=== PATIENT | male | born 1985 | race Caucasian/White ===

== ENCOUNTER 2017-05-10 16:23 | Inpatient (IN) | payer OTHER ==
[2017-05-10 17:17] VITALS: BMI 40.8
[2017-05-10] MEDS ORDERED: TEFLARO IV SCH (18:00)
--- NOTE | 2017-05-10 18:13 | DR.H&P ---
H&P - History & Physical for Day of: H&P Date: 05/10/17 - Chief Complaint Chief Complaint: right leg wound - Allergies Allergies/Adverse Reactions: Allergies Allergy/AdvReac Type Severity Reaction Status Date / Time haloperidol [From Haldol] Allergy Verified 05/10/17 17:25 - History of Present Illness History of Present Illness: PT IS 31 WM DIRECT ADMIT FROM DR LEE OFFICE AFTER PRESENTING WITH WOUND TO RIGHT FOOT X 3-4 DAYS.PT STATES HE WAS SEEN IN ED IN [facility] ONE DAY AGO WITH I & D, PT WAS GIVEN PO BACTRIM AND IM ROCEPHIN. PT HAS HAD FEVER DURING THE NIGHT WITH RED STREAK UP RIGHT LEG AND LOWER CALF PAIN WITH SWELLING. PLAN TO ADMIT FOR FURTHER EVALUATION OF WOUND, IV ATBX, PAIN CONTROL, WOUND AND BLOOD CULTURES - Past Medical History Past Medical History: Hypertension - Past Surgical History Surgical History: Appendectomy, Cholecystectomy, Tonsillectomy, Lithotripsy - Family History Family Medical History: Diabetes Mellitus - Social History Does patient currently use any type of tobacco product: No Have you used tobacco products in the last 12 months: No Type of Tobacco Use: None Does any household member use tobacco: No Alcohol Use: None Drug Use: None - Review of Systems Constitutional: Fever Eyes: No Symptoms Reported ENT: No Symptoms Reported Respiratory: No Symptoms Reported Cardiovascular: No Symptoms Reported Gastrointestinal: No Symptoms Reported Genitourinary: No Symptoms Reported Musculoskeletal: Leg Pain, Foot Pain Skin: Wound Neurological: No Symptoms Reported - Physical Exam Vital Signs: Temperature 98.5 F Pulse Rate [Right Brachial] 66 Respiratory Rate 20 Blood Pressure [Right Arm] 119/57 O2 Sat by Pulse Oximetry 96 Oriented: Normal Eyes: Normal Ear: Normal Nose: Normal Throat: Normal Respiratory: RLL Diminished, LLL Diminished Cardiovascular: Normal : Normal Auscultation: Bowel Sounds: Normal Palpation: Normal Tenderness: Normal Skin: Wound (RIGHT ANKLE ) Musculoskeletal: Right, Leg, Foot Psychiatric: Normal Mood Description: Calm Speech Pattern: Clear, Appropriate - Assessment/Plan (1) Cellulitis of right lower extremity Status: Acute Plan: ADMIT, WOUND AND BLOOD CULTURES. IV ATBX, IV HYDRATION, PAIN CONTROL. SURGICAL CONSULT FOR I & S. WOUND CARE. RESUME HOME MEDS (2) Abscess of right foot Status: Acute
[2017-05-10 18:14] LABS: BASOPHILS # (AUTO) 0.1 X10^3/uL (0.0-0.1); BASOPHILS % (AUTO) 0.7 % (0.2-1.0); EOSINOPHILS # (AUTO) 0.2 x10^3/uL (0.0-0.2); EOSINOPHILS % (AUTO) 2.8 % (0.9-2.9); HEMATOCRIT 40.4 % (42.0-54.0); HEMOGLOBIN 14.1 g/dL (13.5-18.0); LYMPHOCYTES # (AUTO) 2.9 X10^3/uL (1.3-2.9); LYMPHOCYTES % (AUTO) 32.8 % (21.0-51.0); MEAN CORPUSCULAR HEMOGLOBIN 28.9 pg (27.0-34.0); MEAN CORPUSCULAR HGB CONC 34.8 g/dL (33.0-35.0); MEAN PLATELET VOLUME 7.6 fL (7.4-11.0); MONOCYTES # (AUTO) 1.5 x10^3/uL (0.3-0.8); MONOCYTES % (AUTO) 16.7 % (0.0-13.0); NEUTROPHILS # (AUTO) 4.1 x10^3/uL (2.2-4.8); PLATELET COUNT 215 X10^3/uL (150.0-450.0); RED BLOOD COUNT 4.87 X10^6/uL (4.7-6.0); RED CELL DISTRIBUTION WIDTH 13.4 % (11.6-16.5); WHITE BLOOD COUNT 8.8 X10^3/uL (3.6-10.0)
[2017-05-10] MEDS: NS 1000 ML 1,000 ML IV SCH (18:19)
[2017-05-10] MEDS ORDERED: TEFLARO IV ONE (18:23)
[2017-05-10] MEDS ORDERED: NS 50 ML IV 50 ML IV ONE (18:24)
[2017-05-10 18:26] LABS: ALANINE AMINOTRANSFERASE 32 Units/L (12-78); ALBUMIN 3.7 g/dL (3.4-5.0); ALKALINE PHOSPHATASE 46 Units/L (46-116); ASPARTATE AMINO TRANSFERASE 19 Units/L (15-37); BLOOD UREA NITROGEN 12 mg/dL (7-18); CARBON DIOXIDE 25.1 mmol/L (21-32); CHLORIDE 107 mmol/L (98-107); CREATININE 1.16 mg/dL (0.70-1.30); SODIUM 141 mmol/L (136-145); TOTAL PROTEIN 7.1 g/dL (6.4-8.2); eGFR BLACK RACES > 60 (>60); eGFR NON BLACK RACES > 60 (>60)
[2017-05-10] MEDS: TEFLARO 600 MG in NS 50 ML IV + SPIKE MINIBAG* 50 ML IV SCH ×2 (18:26→20:34)
[2017-05-10 18:27] LABS: HEMOGLOBIN A1C 5.5 % (4.5-6.2)
[2017-05-10] MEDS: NORCO 5/325 MG TAB PO PRN (18:47)
[2017-05-10 18:55] LABS: ERYTHROCYTE SEDIMENTATION RATE 15 MM/HOUR (0-15)
--- NOTE | 2017-05-10 19:22 | RAD ---
Examination: Right foot, three views History: Right ankle wound Findings: There is no evidence for fracture, dislocation, bone destruction or soft tissue calcificati on. Joint spaces are maintained. Impression: No significant osseous abnormality demonstrated. Reported By:
[2017-05-10] MEDS: MORPHINE SULFATE INJ 2 MG INJ IVP PRN (21:12)
[2017-05-11] MEDS: MORPHINE SULFATE INJ 2 MG INJ IVP PRN ×5 (01:49→21:17)
[2017-05-11] MEDS: NS 1000 ML 1,000 ML IV SCH ×3 (04:45→16:58)
[2017-05-11 06:11] LABS: BASOPHILS % (AUTO) 0.5 % (0.2-1.0); EOSINOPHILS # (AUTO) 0.3 x10^3/uL (0.0-0.2); EOSINOPHILS % (AUTO) 3.5 % (0.9-2.9); HEMATOCRIT 41.3 % (42.0-54.0); HEMOGLOBIN 14.5 g/dL (13.5-18.0); LYMPHOCYTES # (AUTO) 3.3 X10^3/uL (1.3-2.9); LYMPHOCYTES % (AUTO) 39.5 % (21.0-51.0); MEAN CORPUSCULAR HEMOGLOBIN 28.9 pg (27.0-34.0); MEAN CORPUSCULAR VOLUME 82.5 fL (80.0-100.0); MEAN PLATELET VOLUME 7.2 fL (7.4-11.0); MONOCYTES % (AUTO) 12.2 % (0.0-13.0); NEUTROPHILS # (AUTO) 3.7 x10^3/uL (2.2-4.8); NEUTROPHILS % (AUTO) 44.3 % (42.0-75.0); PLATELET COUNT 196 X10^3/uL (150.0-450.0); RED BLOOD COUNT 5.01 X10^6/uL (4.7-6.0); WHITE BLOOD COUNT 8.5 X10^3/uL (3.6-10.0)
[2017-05-11 06:45] LABS: ALANINE AMINOTRANSFERASE 29 Units/L (12-78); ALBUMIN 3.5 g/dL (3.4-5.0); ALKALINE PHOSPHATASE 42 Units/L (46-116); ASPARTATE AMINO TRANSFERASE 16 Units/L (15-37); BLOOD UREA NITROGEN 10 mg/dL (7-18); CALCIUM 8.9 mg/dL (8.5-10.1); CARBON DIOXIDE 28.2 mmol/L (21-32); CHLORIDE 108 mmol/L (98-107); CREATININE 1.02 mg/dL (0.70-1.30); SODIUM 144 mmol/L (136-145); TOTAL PROTEIN 6.9 g/dL (6.4-8.2); eGFR BLACK RACES > 60 (>60); eGFR NON BLACK RACES > 60 (>60)
[2017-05-11] MEDS ORDERED: KLONOPIN TAB 1 MG PO PRN (08:14)
[2017-05-11] MEDS: NORCO 5/325 MG TAB PO PRN ×2 (08:51→15:31)
[2017-05-11] MEDS ORDERED: ESCITALOPRAM OXALATE 20 MG PO SCH (09:00)
[2017-05-11] MEDS ORDERED: PROPRANOLOL HCL 60 MG PO SCH (09:00)
[2017-05-11] MEDS: TEFLARO 600 MG in NS 50 ML IV 50 ML IV SCH ×2 (09:28→21:27)
[2017-05-11] MEDS: ZESTRIL TAB 10 MG PO SCH (09:28)
[2017-05-11] MEDS ORDERED: TRAZODONE HCL 300 MG PO SCH (21:00)
[2017-05-11] MEDS: DESYREL PO SCH (21:27)
[2017-05-12] MEDS: NS 1000 ML 1,000 ML IV SCH ×2 (02:14→15:00)
[2017-05-12] MEDS: MORPHINE SULFATE INJ 2 MG INJ IVP PRN ×4 (02:15→20:47)
[2017-05-12] MEDS ORDERED: MORPHINE SULFATE INJ 2 MG INJ IVP PRN (05:58)
[2017-05-12] MEDS: NORCO 5/325 MG TAB PO PRN ×2 (05:59→14:37)
[2017-05-12] MEDS ORDERED: LEXAPRO ONE (08:26)
[2017-05-12] MEDS: ZESTRIL TAB 10 MG PO SCH (08:55)
[2017-05-12] MEDS: LEXAPRO PO SCH (08:55)
[2017-05-12] MEDS: TEFLARO 600 MG in NS 50 ML IV 50 ML IV SCH ×2 (08:55→20:48)
[2017-05-12] MEDS: INDERAL TAB 10 MG PO SCH (08:58)
--- NOTE | 2017-05-12 12:00 | DR.CONSULT ---
Consult - Consultation for Day of: Date: 05/12/17 - Chief Complaint Chief Complaint: Right foot wound with cellulitis. - Allergies Allergies/Adverse Reactions: Allergies Allergy/AdvReac Type Severity Reaction Status Date / Time haloperidol [From Haldol] Allergy Verified 05/10/17 17:25 - History of Present Illness History of Present Illness: The patient is a 31 year old male who presented to his primary care physician with right foot and leg cellulitis. The patient noted a small sore on the lateral aspect of the right foot 6 days ago. No known trauma or bites. No history of MRSA infections. The area worsened and developed induration. The patient also noted red streaking travelling up the leg to the thigh region. (+) fevers to 101. He was seen at an OSH and underwent I&D. He was given a dose of Rocephin. The patient was instructed to f/u with his PCP who then placed the patient in the hospital on Teflaro. Surgery was consulted for possible debridement. - Past Medical History Past Medical History: Hypertension Additional Medical History: ESTEFANY - Past Surgical History Surgical History: Appendectomy, Bowel Resection, Cholecystectomy, Tonsillectomy , Lithotripsy Additional Surgical History: Carcinoid of appendix - Family History Family Medical History: Diabetes Mellitus - Social History Does patient currently use any type of tobacco product: No Have you used tobacco products in the last 12 months: No Type of Tobacco Use: None Does any household member use tobacco: No Alcohol Use: None Drug Use: None - Medications Home Medications: Clonazepam [KLONOPIN TAB 1 MG *] 1 mg PO BID PRN 05/10/17 [History Confirmed 08/25] Escitalopram Oxalate [Lexapro 20 mg] 20 mg PO DAILY 05/10/17 [History Confirmed 05/10/17] Lisinopril 10 mg PO DAILY 05/10/17 [History Confirmed 05/10/17] Propranolol HCl 60 mg PO DAILY 05/10/17 [History Confirmed 05/10/17] Trazodone HCl 300 mg PO HS 05/10/17 [History Confirmed 05/10/17] - Review of Systems Constitutional: Fever Eyes: No Symptoms Reported ENT: No Symptoms Reported Respiratory: No Symptoms Reported Cardiovascular: No Symptoms Reported Gastrointestinal: No Symptoms Reported Genitourinary: No Symptoms Reported Musculoskeletal: Leg Pain, Foot Pain Skin: Other (See HPI.) Neurological: No Symptoms Reported - Physical Exam Vital Signs: Temperature 98.3 F Pulse Rate [Right Brachial] 77 Respiratory Rate 20 Blood Pressure [Right Arm] 140/70 O2 Sat by Pulse Oximetry 99 Oriented: Normal Eyes: Normal Ear: Normal Nose: Normal Throat: Normal Respiratory: Clear Throughout Cardiovascular: Normal Auscultation: Bowel Sounds: Normal Palpation: Normal, Other (Midline scar noted.) Tenderness: Normal Skin: Red, Tender, Wound (Right lateral foot woundapproxiamtely 2 cm. Mild skin sloughing. TTP. No induration. (+) Ecchymosis.), Ecchymosis Musculoskeletal: Normal Psychiatric: Normal Mood Description: Calm Affect: Normal Speech Pattern: Clear, Appropriate - Plan Plan: 31 yo M with right foot wound and resolving cellulitis. Cellulitis significantly resolved. Pictures taken by family show improvement. Necrotic tissue sloughed off and minimal tissue to debride at this point (superficial). Ecchymosis still present. Would recommend outpatient antibiotic infusion and local wound care. No need for surgical debridement. Thank you for this consultation.
[2017-05-12] MEDS: DESYREL PO SCH (20:48)
[2017-05-13] MEDS: MORPHINE SULFATE INJ 2 MG INJ IVP PRN ×6 (01:26→21:26)
[2017-05-13] MEDS: NS 1000 ML 1,000 ML IV SCH ×2 (05:45→19:08)
[2017-05-13 06:12] LABS: BASOPHILS # (AUTO) 0.1 X10^3/uL (0.0-0.1); BASOPHILS % (AUTO) 0.8 % (0.2-1.0); EOSINOPHILS # (AUTO) 0.2 x10^3/uL (0.0-0.2); EOSINOPHILS % (AUTO) 2.7 % (0.9-2.9); HEMOGLOBIN 15.2 g/dL (13.5-18.0); LYMPHOCYTES # (AUTO) 3.4 X10^3/uL (1.3-2.9); LYMPHOCYTES % (AUTO) 43.3 % (21.0-51.0); MEAN CORPUSCULAR HEMOGLOBIN 28.7 pg (27.0-34.0); MEAN CORPUSCULAR HGB CONC 35.3 g/dL (33.0-35.0); MEAN CORPUSCULAR VOLUME 81.5 fL (80.0-100.0); MEAN PLATELET VOLUME 7.4 fL (7.4-11.0); MONOCYTES # (AUTO) 0.6 x10^3/uL (0.3-0.8); MONOCYTES % (AUTO) 7.6 % (0.0-13.0); NEUTROPHILS # (AUTO) 3.6 x10^3/uL (2.2-4.8); NEUTROPHILS % (AUTO) 45.6 % (42.0-75.0); PLATELET COUNT 245 X10^3/uL (150.0-450.0); RED BLOOD COUNT 5.27 X10^6/uL (4.7-6.0); RED CELL DISTRIBUTION WIDTH 13.2 % (11.6-16.5); WHITE BLOOD COUNT 7.8 X10^3/uL (3.6-10.0)
[2017-05-13 06:32] LABS: ALANINE AMINOTRANSFERASE 35 Units/L (12-78); ALBUMIN 3.7 g/dL (3.4-5.0); ALKALINE PHOSPHATASE 49 Units/L (46-116); ASPARTATE AMINO TRANSFERASE 16 Units/L (15-37); BLOOD UREA NITROGEN 10 mg/dL (7-18); CARBON DIOXIDE 28.2 mmol/L (21-32); CHLORIDE 106 mmol/L (98-107); CREATININE 1.01 mg/dL (0.70-1.30); SODIUM 142 mmol/L (136-145); TOTAL PROTEIN 7.2 g/dL (6.4-8.2); eGFR BLACK RACES > 60 (>60); eGFR NON BLACK RACES > 60 (>60)
[2017-05-13] MEDS ORDERED: LEXAPRO ONE (09:11)
[2017-05-13] MEDS: LEXAPRO PO SCH (09:26)
[2017-05-13] MEDS: INDERAL TAB 10 MG PO SCH (09:27)
[2017-05-13] MEDS: ZESTRIL TAB 10 MG PO SCH (09:27)
[2017-05-13] MEDS: TEFLARO 600 MG in NS 50 ML IV 50 ML IV SCH ×2 (09:28→21:25)
[2017-05-13] MEDS: NORCO 5/325 MG TAB PO PRN (19:08)
[2017-05-13] MEDS: DESYREL PO SCH (21:25)
[2017-05-14] MEDS: MORPHINE SULFATE INJ 2 MG INJ IVP PRN ×2 (01:30→05:21)
[2017-05-14 05:18] LABS: ALANINE AMINOTRANSFERASE 40 Units/L (12-78); ALBUMIN 3.8 g/dL (3.4-5.0); ALKALINE PHOSPHATASE 53 Units/L (46-116); ASPARTATE AMINO TRANSFERASE 18 Units/L (15-37); BLOOD UREA NITROGEN 11 mg/dL (7-18); CALCIUM 8.9 mg/dL (8.5-10.1); CARBON DIOXIDE 29.8 mmol/L (21-32); CHLORIDE 103 mmol/L (98-107); COR NA(FOR HYPERGLY) 140 mmol/L (136-145); CREATININE 1.08 mg/dL (0.70-1.30); SODIUM 140 mmol/L (136-145); TOTAL PROTEIN 7.2 g/dL (6.4-8.2); eGFR BLACK RACES > 60 (>60); eGFR NON BLACK RACES > 60 (>60)
[2017-05-14 05:27] LABS: BASOPHILS # (AUTO) 0.1 X10^3/uL (0.0-0.1); BASOPHILS % (AUTO) 0.7 % (0.2-1.0); EOSINOPHILS # (AUTO) 0.2 x10^3/uL (0.0-0.2); EOSINOPHILS % (AUTO) 2.5 % (0.9-2.9); HEMATOCRIT 44.2 % (42.0-54.0); HEMOGLOBIN 15.6 g/dL (13.5-18.0); LYMPHOCYTES # (AUTO) 2.7 X10^3/uL (1.3-2.9); LYMPHOCYTES % (AUTO) 33.3 % (21.0-51.0); MEAN CORPUSCULAR HEMOGLOBIN 28.5 pg (27.0-34.0); MEAN CORPUSCULAR HGB CONC 35.2 g/dL (33.0-35.0); MEAN PLATELET VOLUME 7.1 fL (7.4-11.0); MONOCYTES # (AUTO) 0.7 x10^3/uL (0.3-0.8); MONOCYTES % (AUTO) 9.1 % (0.0-13.0); NEUTROPHILS # (AUTO) 4.4 x10^3/uL (2.2-4.8); NEUTROPHILS % (AUTO) 54.4 % (42.0-75.0); PLATELET COUNT 241 X10^3/uL (150.0-450.0); RED BLOOD COUNT 5.45 X10^6/uL (4.7-6.0); RED CELL DISTRIBUTION WIDTH 13.1 % (11.6-16.5); WHITE BLOOD COUNT 8.2 X10^3/uL (3.6-10.0)
[2017-05-14] MEDS: NS 1000 ML 1,000 ML IV SCH ×2 (06:11→09:04)
[2017-05-14] MEDS ORDERED: LEXAPRO ONE (08:00)
[2017-05-14] MEDS: INDERAL TAB 10 MG PO SCH (08:58)
[2017-05-14] MEDS: LEXAPRO PO SCH (08:58)
[2017-05-14] MEDS: ZESTRIL TAB 10 MG PO SCH (08:58)
[2017-05-14] MEDS: TEFLARO 600 MG in NS 50 ML IV 50 ML IV SCH (09:00)
[2017-05-14 11:43] VITALS: BP 129/72
== END 2017-05-14 11:40 | disposition home or self-care (01) | DRG 603 ==
LOC: ICU 16:23
PROVIDERS: ADMIT Internal Medicine; ATTEND Internal Medicine
DX: L03.115 Cellulitis of right lower limb (principal); L02.611 Cutaneous abscess of right foot; T63.391D Toxic effect of venom of other spider, accidental (unintentional), subsequent encounter; I10 Essential (primary) hypertension; E66.01 Morbid (severe) obesity due to excess calories; R79.82 Elevated C-reactive protein (CRP); F41.8 Other specified anxiety disorders; F32.89 Other specified depressive episodes
CPT/HCPCS: 36415; 73630; 80053; 83036; 85025; 85652; 86140; 87040; 87070; 87075; 87205; 99231; A4222; J0712; J2270

== ENCOUNTER 2017-08-18 16:12 | Emergency (ER) | payer OTHER ==
[2017-08-18 16:18] VITALS: BP 132/72; BMI 41.5
--- NOTE | 2017-08-18 18:56 | DR.GENAD ---
HPI - PCP Primary Care Physician: MIL - Complaint/Symptoms Chief Complaint Doctors Comments: Patient complains of abscess on the rectal area for the past two days getting worst today. states he has had one drained about two years ago and he has been taking antibiotics for strept throat and has been using sitz baths. states he has been having pain when he walks with the pain 8 of 10. He denies dysuria, hematuria, melana or diarrhea. states he is a patient of Dr. Murry. Chief Complaint:: PT STATES I'VE GOT AN ANAL ABCESS. PT STATES HE JUST NOTICED IT A FEW DAYS AGO, BUT THE PAIN HAS GOTTEN WORSE THE LAST TWO DAYS. - Nurses notes reviewed Nurses Notes Review: Yes - Source History Provided: Patient - Mode of Arrival Mode of Arrival: Ambulatory - Timing Onset of Chief Complaint: 08/14/17 Came on: Gradually - Duration Duration: Constant How lon Duration: Days - Location Location: right buttock lesion - Severity Severity: Moderate, Severe - Modifying Factors Worsens:: walking and movement Improves:: nothing PMH - PMH Past Medical History: No Past Medical History: Hypertension Past Surgical History: Yes Surgical History: Abdominal Surgery, Appendectomy, Cholecystectomy, Tonsillectomy, Lithotripsy - Family History History of Family Medical Conditions: No Family Medical History: Diabetes Mellitus - Social History Alcohol Use: None Do you use any recreational Drugs:: No Lives With: Alone Lives Where: Home - infectious screening In the last 2 months have you had wt loss of >10#?: NO Have you had fever, night sweats or hemotysis?: No Have you traveled outside the country in the last 6 months?: No Isolation: Standard ROS - Review of Systems Constitutional: No Symptoms Reported, See HPI Eyes: No Symptoms Reported ENTM: No Symptoms Reported. negative: See HPI, Ear Pain, Ear Discharge, Pulling on Ears, Hearing Loss, Nose Pain, Nose Discharge, Epistaxis, Nose Congestion, Mouth Pain, Mouth Swelling, Loose Teeth, Drooling, Throat Pain, Throat Swelling, Ear Foreign Body Respiratoy: No Symptoms Reported Cardiovascular: No Symptoms Reported Gastrointestinal/Abdominal: No Symptoms Reported. negative: See HPI, Abdominal Pain, Constipation, Diarrhea, Nausea, Vomiting, Food Intolerance, Other Genitourinary: No Symptoms Reported Neurological: No Symptoms Reported Musculoskeletal: No Symptoms Reported Integumentary: No Symptoms Reported, Lumps, Wound (buttock lesion) Endocrine: No Symptoms Reported Psychiatric: No Symptoms Reported PE - Vital Signs Vitals: Temperature 100.0 F Pulse Rate 96 Respiratory Rate 20 Blood Pressure [Right Arm] 129/72 Blood Pressure 132/72 O2 Sat by Pulse Oximetry 96 - General Limitations: No Limitations General Appearance: Alert, In Distress (moderate), Obese - Head Head Exam: Normal Inspection, Atraumatic, Normocephalic - Eyes Eye exam: Normal Appearance, PERRL, EOMI. negative: Scleral Icterus, Conjunctival Injection, Nystagmus, Miosis, Mydrasis, Periorbital Swelling, Periorbital Tenderness, Other - ENT ENT Exam: Normal Exam, Normal Oropharynx, Normal External Ear Exam, Mucous Membranes Moist, TM's Normal Bilaterally External Ear Exam: Normal External Inspection TM/Canal Exam: Bilateral Normal Nose Exam: Normal Nose Exam Mouth Exam: Normal Inspection Throat Exam: Normal Inspection - Neck Neck Exam: Normal Inspection, Full ROM, Trachea Midline - Chest Chest Inspection: Normal Inspection, Symmetric Chest Wall Rise - Respiratory Respiratory Exam: Normal Lung Sounds Bilat Respiratory Exam: Bilateral Clear to Auscultation - Cardiovascular Cardiovascular Exam: Regular Rate, Normal Rhythm, Normal Heart Sounds - Abdominal Exam Abdominal Exam: Normal Inspection, Normal Bowel Sounds, Soft Abdominal Tenderness: negative: RUQ, RLQ, LUQ, LLQ, Epigastrium, Suprapubic, Diffuse, Mild, Moderate, Severe, Other - Extremities Extremities Exam: Normal Inspection, Full ROM, Normal Capillary Refill. negative: Tenderness, Edema, Joint Swelling, Calf Tenderness, Other - Back Back Exam: Normal Inspection, Full ROM - Neurologic Neurological Exam: Alert, Oriented X3, CN II-XII Intact, Reflexes Normal. negative: Normal Gait (gait not tested) - Psychiatric Psychiatric Exam: Normal Affect, Normal Mood - Skin Skin Exam: Warm, Dry, Intact, Normal Color Procedures - Incision and Drainage Blade Size: 11 I & D Procedure: betadine prep, sterile drapes applied, sterile dressing applied , gauze wick placed - Diagnosis Discharge Problem: Chasidy-rectal abscess - Discharge Plan Disposition: HOME, SELF-CARE Condition: Stable Prescriptions: Cephalexin [KEFLEX CAP 500 MG *] 500 mg PO TID #30 cap Ibuprofen [MOTRIN TAB 800 MG *] 800 mg PO BID PRN #30 tab PRN Reason: Pain/Inflammation - Follow ups/Referrals Follow ups/Referrals: MURRY,JONATHON [Primary Care Provider] - 3 days FCO ZARAGOZA [STAFF PHYSICIAN] - 3 days - Instructions Instructions: Abscess, [id number], Perirectal Abscess
[2017-08-18] MEDS ORDERED: XYLOCAINE 1 % (PLAIN) ONE (19:04)
[2017-08-18] MEDS ORDERED: ROCEPHIN VIAL 1 GM IM ONE (20:21)
[2017-08-18] MEDS ORDERED: TORADOL 60 MG VIAL IM ONE (20:21)
[2017-08-18] MEDS ORDERED: ROCEPHIN VIAL 1 GM ONE (20:30)
[2017-08-18] MEDS ORDERED: TORADOL 60 MG VIAL ONE (20:30)
== END 2017-08-18 20:43 | disposition home or self-care (01) ==
LOC: ER 16:22
PROC: 0D9P3ZZ Drainage of Rectum, Percutaneous Approach (ICD-10-PCS; principal; 2017-08-18)
DX: K61.1 Rectal abscess (principal); B96.29 Other Escherichia coli [E. coli] as the cause of diseases classified elsewhere; B96.1 Klebsiella pneumoniae [K. pneumoniae] as the cause of diseases classified elsewhere
CPT/HCPCS: 10060; 87070; 87075; 87077; 87186; 87205; 96372; 99282; 99283; J0696; J1885; J2001

== ENCOUNTER → 2017-08-20 | Outpatient (CLI) | payer OTHER ==
[2017-08-18 16:18] VITALS: BP 132/72
[~2017-08-20] MED LIST: FENTANYL INJ 100 mcg ONE; KETALAR ONE
[2017-08-20 16:28] LABS: BASOPHILS # (AUTO) 0.1 X10^3/uL (0.0-0.1); BASOPHILS % (AUTO) 0.6 % (0.2-1.0); EOSINOPHILS # (AUTO) 0.4 x10^3/uL (0.0-0.2); EOSINOPHILS % (AUTO) 4.6 % (0.9-2.9); HEMATOCRIT 41.3 % (42.0-54.0); HEMOGLOBIN 14.5 g/dL (13.5-18.0); LYMPHOCYTES # (AUTO) 2.6 X10^3/uL (1.3-2.9); LYMPHOCYTES % (AUTO) 28.1 % (21.0-51.0); MEAN CORPUSCULAR HEMOGLOBIN 28.7 pg (27.0-34.0); MEAN CORPUSCULAR VOLUME 82.2 fL (80.0-100.0); MEAN PLATELET VOLUME 6.7 fL (7.4-11.0); MONOCYTES # (AUTO) 0.9 x10^3/uL (0.3-0.8); MONOCYTES % (AUTO) 9.9 % (0.0-13.0); NEUTROPHILS # (AUTO) 5.2 x10^3/uL (2.2-4.8); NEUTROPHILS % (AUTO) 56.8 % (42.0-75.0); PLATELET COUNT 199 X10^3/uL (150.0-450.0); RED BLOOD COUNT 5.03 X10^6/uL (4.7-6.0); RED CELL DISTRIBUTION WIDTH 14.2 % (11.6-16.5); WHITE BLOOD COUNT 9.1 X10^3/uL (3.6-10.0)
[2017-08-20 16:43] LABS: ALANINE AMINOTRANSFERASE 34 Units/L (12-78); ALBUMIN 3.5 g/dL (3.4-5.0); ALKALINE PHOSPHATASE 50 Units/L (46-116); ASPARTATE AMINO TRANSFERASE 16 Units/L (15-37); BLOOD UREA NITROGEN 9 mg/dL (7-18); CALCIUM 9.2 mg/dL (8.5-10.1); CARBON DIOXIDE 28.1 mmol/L (21-32); CHLORIDE 108 mmol/L (98-107); CREATININE 1.12 mg/dL (0.70-1.30); SODIUM 143 mmol/L (136-145); TOTAL PROTEIN 7.1 g/dL (6.4-8.2); eGFR BLACK RACES > 60 (>60); eGFR NON BLACK RACES > 60 (>60)
== END ==
LOC: LAB 16:10
PROVIDERS: ATTEND Surgery
DX: Z01.818 Encounter for other preprocedural examination (principal); K61.1 Rectal abscess
CPT/HCPCS: 36415; 80053; 85025; J3010; J3490

== ENCOUNTER → 2017-08-21 | Day surgery (SDC) | payer OTHER ==
[~2017-08-21] MED LIST changes: +ANCEF 1 GM IV PREMIX* 2 GM/100 ML BAG IV ONE; +DIPRIVAN VIAL ONE; +NS 1000 ML 1,000 ML ONE; +NS IRRIGATION 1000 ML 1,000 ML with BACITRACIN VIAL 50,000 UNT IR ONE; +PERCOCET TAB 5/325 MG ONE; +VERSED ONE; +XYLOCAINE-MPF 1% ONE
[2017-08-21 12:36] VITALS: BP 117/65
== END | disposition home or self-care (01) ==
LOC: SURG1 10:06
PROVIDERS: ATTEND Surgery
PROC: 0JD90ZZ Extraction of Buttock Subcutaneous Tissue and Fascia, Open Approach (ICD-10-PCS; principal; 2017-08-21 13:00)
DX: K61.1 Rectal abscess (principal); E66.8 Other obesity; I10 Essential (primary) hypertension; B96.29 Other Escherichia coli [E. coli] as the cause of diseases classified elsewhere
CPT/HCPCS: 87070; 87075; 87077; 87186; 87205; A4222; J0690; J2250; J3010; J3490

== ENCOUNTER 2017-09-03 08:58 | Day surgery (SDC) | payer OTHER ==
[~2017-09-03 08:58] MED LIST changes: -ANCEF 1 GM IV PREMIX* 2 GM/100 ML BAG IV ONE; +D5 LR 1000 ML 1,000 ML IV ONE; -DIPRIVAN VIAL ONE; -FENTANYL INJ 100 mcg ONE; -KETALAR ONE; -NS 1000 ML 1,000 ML ONE; -NS IRRIGATION 1000 ML 1,000 ML with BACITRACIN VIAL 50,000 UNT IR ONE; -PERCOCET TAB 5/325 MG ONE; -VERSED ONE; -XYLOCAINE-MPF 1% ONE
[2017-09-03] MEDS ORDERED: VERSED ONE (09:27)
[2017-09-03] MEDS ORDERED: DIPRIVAN VIAL 20 ML ONE ×2 (09:27→09:41)
[2017-09-03 10:28] VITALS: BP 118/69
== END 2017-09-03 10:25 | disposition home or self-care (01) | DRG 392 ==
LOC: SURG1 08:58
PROVIDERS: ATTEND Surgery
PROC: 0DB68ZX Excision of Stomach, Via Natural or Artificial Opening Endoscopic, Diagnostic (ICD-10-PCS; 2017-09-03)
PROC: 0DJD8ZZ Inspection of Lower Intestinal Tract, Via Natural or Artificial Opening Endoscopic (ICD-10-PCS; 2017-09-03)
PROC: 0DBN8ZX Excision of Sigmoid Colon, Via Natural or Artificial Opening Endoscopic, Diagnostic (ICD-10-PCS; 2017-09-03)
PROC: 0DBL8ZX Excision of Transverse Colon, Via Natural or Artificial Opening Endoscopic, Diagnostic (ICD-10-PCS; 2017-09-03)
PROC: 0DJ08ZZ Inspection of Upper Intestinal Tract, Via Natural or Artificial Opening Endoscopic (ICD-10-PCS; principal; 2017-09-03 10:15)
PROC: 0DB98ZX Excision of Duodenum, Via Natural or Artificial Opening Endoscopic, Diagnostic (ICD-10-PCS; 2017-09-03 10:15)
DX: K21.0 Gastro-esophageal reflux disease with esophagitis (principal); R12 Heartburn; Z85.038 Personal history of other malignant neoplasm of large intestine; Z98.890 Other specified postprocedural states
CPT/HCPCS: A4217; J2250; J3490; J7120

== ENCOUNTER → 2017-09-21 | Outpatient (CLI) | payer SELFPAY ==
[2017-09-03 10:28] VITALS: BP 118/69
[~2017-09-21] MED LIST changes: -D5 LR 1000 ML 1,000 ML IV ONE; +NS 100 ML IV 100 ML IV ONE
--- NOTE | 2017-09-24 09:09 | CT ---
HISTORY: Rectal abscess, carcinoid of the appendix, history of partial colectomy Study: CT abdomen and pelvis with contrast Comparison: None Technique: Multiple axial images of the abdomen and pelvis were obtained with IV contrast. Oral contrast was ad ministered. Dose reduction techniques including Automated Exposure Control (AEC) and adjustment of mA and kV were utilized. Findings: There is a 2 mm pulmonary nodule at the left lung base. The spleen, liver, pancreas, and adrenal gla nds are unremarkable. The gallbladder is removed. There is a single nonobstructing left renal calculu s. There are bilateral simple appearing renal cysts. No obstructive uropathy identified. No free intraperitoneal air. No evidence of intestinal obstruction or inflammation. Oral contrast tristian ches the hepatic flexure. There are surgical changes from previous partial right colectomy noted. No free fluid is identified. There are mildly prominent mesenteric lymph nodes seen in the right abdomen , the largest measuring 1 x 0.9 cm. No aggressive osseous lesions are identified. The vascular structures are within normal limits for ag e. The urinary bladder is unremarkable. No evidence of perirectal abscess is seen within the field of view. IMPRESSION: 1. Postsurgical changes reflecting partial right colectomy. A few mildly prominent mesenteric lymph n odes are seen in the right lower abdomen that are nonspecific in nature. No acute inflammatory change s are seen. 2. Single nonobstructing left renal calculus and bilateral simple appearing renal cysts. 3. 2 mm left lower lobe pulmonary nodule; based on size no further follow-up is needed unless the pat ient has a high risk for malignancy in which case optional 12 month follow-up chest CT could be perfo rmed to evaluate for stability. Reported By:
== END ==
LOC: RAD 11:49
PROVIDERS: ATTEND Surgery
DX: D3A.020 Benign carcinoid tumor of the appendix (principal); R91.1 Solitary pulmonary nodule
CPT/HCPCS: 74177; A4222

== ENCOUNTER 2021-12-23 11:12 | Observation (INO) ==
[2021-12-23] MEDS ORDERED: NS 100 ML IV 100 ML ONE (11:27)
[2021-12-23] MEDS ORDERED: LR 1,000 ML IV 1,000 ML IV ONE (11:27)
[2021-12-23] MEDS ORDERED: ANCEF VIAL 1 GRAM ONE (11:27)
[2021-12-23] MEDS ORDERED: BETADINE SOLN ONE ×2 (12:05→21:04)
[2021-12-23] MEDS ORDERED: POLYMYXIN B SULFATE ONE (12:05)
[2021-12-23] MEDS ORDERED: VERSED ONE (12:55)
[2021-12-23] MEDS ORDERED: DIPRIVAN VIAL 20 ML ONE ×2 (12:55→13:31)
[2021-12-23] MEDS ORDERED: FENTANYL VIAL INJ 100 mcg ONE (12:55)
[2021-12-23] MEDS ORDERED: XYLOCAINE 1% and EPINEPHRINE 1:100,000 ONE (13:09)
[2021-12-23] MEDS ORDERED: DILAUDID INJ ONE (13:39)
[2021-12-23] MEDS ORDERED: VANCOMYCIN IV *PREMIX 1 G/200 ML BAG 1 G/200 ML PIGGYBACK IV ONE (13:43)
[2021-12-23] MEDS ORDERED: ZOFRAN INJ 4 MG VIAL IVP PRN (14:06)
[2021-12-23] MEDS ORDERED: PERCOCET TAB 5/325 MG ONE (14:30)
[2021-12-23] MEDS: PERCOCET TAB 5/325 MG PO PRN ×3 (14:36→22:33)
[2021-12-23] MEDS: VANCOMYCIN IV *PREMIX 1 G/200 ML BAG 1 G/200 ML PIGGYBACK IV SCH ×2 (14:43→20:32)
[2021-12-23] MEDS: DILAUDID INJ IVP PRN ×2 (17:02→20:33)
[2021-12-23] MEDS: BETADINE SOLN TOP SCH (21:20)
[2021-12-24] MEDS: DILAUDID INJ IVP PRN ×6 (00:36→23:35)
[2021-12-24 05:17] LABS: BASOPHILS # (AUTO) 0.1 X10^3/uL (0.0-0.1); BASOPHILS % (AUTO) 0.7 % (0.2-1.0); EOSINOPHILS # (AUTO) 0.2 x10^3/uL (0.0-0.2); EOSINOPHILS % (AUTO) 2.4 % (0.9-2.9); HEMATOCRIT 39.1 % (42.0-54.0); HEMOGLOBIN 13.6 g/dL (13.5-18.0); LYMPHOCYTES # (AUTO) 2.5 X10^3/uL (1.3-2.9); LYMPHOCYTES % (AUTO) 31.7 % (21.0-51.0); MEAN CORPUSCULAR HEMOGLOBIN 28.3 pg (27.0-34.0); MEAN CORPUSCULAR HGB CONC 34.9 g/dL (33.0-35.0); MEAN CORPUSCULAR VOLUME 81.1 fL (80.0-100.0); MEAN PLATELET VOLUME 6.7 fL (7.4-11.0); MONOCYTES # (AUTO) 0.8 x10^3/uL (0.3-0.8); MONOCYTES % (AUTO) 9.6 % (0.0-13.0); NEUTROPHILS # (AUTO) 4.4 x10^3/uL (2.2-4.8); NEUTROPHILS % (AUTO) 55.6 % (42.0-75.0); RED BLOOD COUNT 4.82 X10^6/uL (4.7-6.0); RED CELL DISTRIBUTION WIDTH 13.1 % (11.6-16.5); WHITE BLOOD COUNT 7.9 X10^3/uL (3.6-10.0)
[2021-12-24] MEDS: BETADINE SOLN TOP SCH ×3 (05:19→21:48)
[2021-12-24 05:28] LABS: ALANINE AMINOTRANSFERASE 45 Units/L (12-78); ALBUMIN 3.5 g/dL (3.4-5.0); ALKALINE PHOSPHATASE 65 Units/L (46-116); ASPARTATE AMINO TRANSFERASE 15 Units/L (15-37); BLOOD UREA NITROGEN 18 mg/dL (7-18); CALCIUM 8.6 mg/dL (8.5-10.1); CARBON DIOXIDE 26.9 mmol/L (21-32); CHLORIDE 107 mmol/L (98-107); CREATININE 0.94 mg/dL (0.70-1.30); SODIUM 140 mmol/L (136-145); TOTAL PROTEIN 6.6 g/dL (6.4-8.2); eGFR NON BLACK RACES > 60 (>60)
[2021-12-24] MEDS ORDERED: NS 250 ML IV 250 ML IV ONE (08:25)
[2021-12-24] MEDS: VANCOMYCIN IV *PREMIX 1 G/200 ML BAG 1 G/200 ML PIGGYBACK IV SCH ×3 (08:34→22:00)
--- NOTE | 2021-12-24 09:53 | DR.PROGNOT ---
Hospital Progress Notes - Progress Note for Day of: Progress Note Date: 12/24/21 - Chief Complaint Chief Complaint: still having severe rectal pain from the abscess and cellulitis . s/p I&D and packing . HTN . recurrent perianal abscess.. same IV ABT and local care .. - Past Medical Family Social History Allergies: Allergies haloperidol [From Haldol] Allergy (Verified 12/23/21 14:39) - Vital Signs Vital Signs: Temperature 97.9 F Pulse Rate [Left Radial] 64 Pulse Rate 57 Respiratory Rate 18 Blood Pressure [Right Arm] 130/77 Blood Pressure 138/73 O2 Sat by Pulse Oximetry 98 - Physical Exam Mood Description: Calm, Appropriate Speech Pattern: Clear, Appropriate - Laboratory and Diagnostics Result Diagrams: 12/24/21 04:44 12/24/21 04:44 Labs: 12/23/21 13:30 Anus Wound Gram Stain - Final 12/23/21 13:30 Anus Wound Culture - Preliminary Laboratory WBC 7.9 X10^3/uL (3.6-10.0) 12/24/21 04:44 RBC 4.82 X10^6/uL (4.7-6.0) 12/24/21 04:44 Hgb 13.6 g/dL (13.5-18.0) 12/24/21 04:44 Hct 39.1 % (42.0-54.0) L 12/24/21 04:44 MCV 81.1 fL (80.0-100.0) 12/24/21 04:44 MCH 28.3 pg (27.0-34.0) 12/24/21 04:44 MCHC 34.9 g/dL (33.0-35.0) 12/24/21 04:44 RDW 13.1 % (11.6-16.5) 12/24/21 04:44 Plt Count 272 X10^3/uL (150.0-450.0) 12/24/21 04:44 MPV 6.7 fL (7.4-11.0) L 12/24/21 04:44 Neut % (Auto) 55.6 % (42.0-75.0) 12/24/21 04:44 Lymph % (Auto) 31.7 % (21.0-51.0) 12/24/21 04:44 [place] % (Auto) 9.6 % (0.0-13.0) 12/24/21 04:44 Eos % (Auto) 2.4 % (0.9-2.9) 12/24/21 04:44 Baso % (Auto) 0.7 % (0.2-1.0) 12/24/21 04:44 Neut # (Auto) 4.4 x10^3/uL (2.2-4.8) 12/24/21 04:44 Lymph # (Auto) 2.5 X10^3/uL (1.3-2.9) 12/24/21 04:44 [place] # (Auto) 0.8 x10^3/uL (0.3-0.8) 12/24/21 04:44 Eos # (Auto) 0.2 x10^3/uL (0.0-0.2) 12/24/21 04:44 Baso # (Auto) 0.1 X10^3/uL (0.0-0.1) 12/24/21 04:44 Absolute Nucleated RBC 0.0 /100WBC 12/24/21 04:44 Sodium 140 mmol/L (136-145) 12/24/21 04:44 Corrected Sodium TNP 12/24/21 04:44 Potassium 4.1 mmol/L (3.5-5.1) 12/24/21 04:44 Chloride 107 mmol/L (98-107) 12/24/21 04:44 Carbon Dioxide 26.9 mmol/L (21-32) 12/24/21 04:44 BUN 18 mg/dL (7-18) 12/24/21 04:44 Creatinine 0.94 mg/dL (0.70-1.30) 12/24/21 04:44 Est GFR (MDRD) Af Amer > 60 (>60) 12/24/21 04:44 Est GFR (MDRD) Non-Af > 60 (>60) 12/24/21 04:44 Glucose 102 mg/dL (65-99) H 12/24/21 04:44 Calcium 8.6 mg/dL (8.5-10.1) 12/24/21 04:44 Corrected Calcium TNP 12/24/21 04:44 Total Bilirubin 0.30 mg/dL (0.2-1.0) 12/24/21 04:44 AST 15 Units/L (15-37) 12/24/21 04:44 ALT 45 Units/L (12-78) 12/24/21 04:44 Alkaline Phosphatase 65 Units/L (46-116) 12/24/21 04:44 Total Protein 6.6 g/dL (6.4-8.2) 12/24/21 04:44 Albumin 3.5 g/dL (3.4-5.0) 12/24/21 04:44 Globulin 3.1 g/dL (2.5-4.5) 12/24/21 04:44 Albumin/Globulin Ratio 1.1 Ratio (1.1-2.1) 12/24/21 04:44
--- NOTE | 2021-12-24 11:14 | DR.CONSULT ---
CONSULT Consultation for Day of: Date: 12/24/21 Chief Complaint Chief Complaint: Pain Allergies Allergies Allergy/AdvReac Type Severity Reaction Status Date / Time haloperidol [From Haldol] Allergy Verified 12/23/21 14:39 History of Present Illness History of Present Illness: Pt is a 36 year old male admitted for perianal abscess. He is s/p I&D. Consulted for elevated blood pressure. Labs/imaging: Wbc 7.9, Hgb 13.6, Plt 272, Na 140, K 4.1, Creatinine 0.94, Glucose 102, Wound cx: prelim coagulase negative staph. Pt is currently receiving IV antibiotics: Vancomycin, Pain control with Dilaudid prn, Oxycodone prn. Will restart home medication Lisinopril 5mg for blood pressure and continue to closely monitor. Past Medical History Past Medical History: Hypertension Additional Medical History: ESTEFANY Past Surgical History Surgical History: Appendectomy, Cholecystectomy and Tonsillectomy Additional Surgical History: Carcinoid of appendix Family History Family Medical History: Cancer Social History Does patient currently use any type of tobacco product: No Have you used tobacco products in the last 12 months: No Type of Tobacco Use: None Does any household member use tobacco: No Alcohol Use: None Drug Use: None Medications Home Medications: haloperidol [From Haldol] Allergy (Verified 12/23/21 14:39) CONTINUE taking the following medications trazodone 150 mg PO HS 12/23/21 [History] Review of Systems Constitutional: No Symptoms Reported Eyes: No Symptoms Reported ENT: No Symptoms Reported Respiratory: No Symptoms Reported Cardiovascular: No Symptoms Reported Gastrointestinal: No Symptoms Reported Genitourinary: Other (perianal pain) Musculoskeletal: No Symptoms Reported Skin: No Symptoms Reported Neurological: No Symptoms Reported Physical Exam Vital Signs: Temperature 97.9 F Pulse Rate [Left Radial] 64 Pulse Rate 57 Respiratory Rate 18 Blood Pressure [Right Arm] 130/77 Blood Pressure 138/73 O2 Sat by Pulse Oximetry 98 Oriented: Normal Eyes: Normal Ear: Normal Nose: Normal Respiratory: Clear Throughout Cardiovascular: Normal : Other (perianal pain) Auscultation: Bowel Sounds: Normal Palpation: Normal Tenderness: Normal Skin: Normal Psychiatric: Normal Mood Description: Calm Speech Pattern: Clear Plan (1) Hypertension: Status: Acute Plan: Restart lisinopril. (2) Chasidy-rectal abscess: Status: Acute Plan: followed by surgery
[2021-12-24] MEDS: PERCOCET TAB 5/325 MG PO PRN ×3 (12:13→22:07)
[2021-12-24 20:32] LABS: CREATININE 0.95 mg/dL (0.70-1.30)
[2021-12-24 21:47] VITALS: BMI 31.6
[2021-12-24] MEDS: ZESTRIL TAB 5 MG PO SCH (22:00)
[2021-12-25] MEDS: VANCOMYCIN IV *PREMIX 1 G/200 ML BAG 1 G/200 ML PIGGYBACK IV SCH ×3 (05:22→23:20)
[2021-12-25] MEDS: DILAUDID INJ IVP PRN ×5 (05:24→22:50)
[2021-12-25] MEDS: BETADINE SOLN TOP SCH ×3 (05:24→21:00)
[2021-12-25 05:27] LABS: BASOPHILS # (AUTO) 0.1 X10^3/uL (0.0-0.1); BASOPHILS % (AUTO) 0.8 % (0.2-1.0); EOSINOPHILS # (AUTO) 0.2 x10^3/uL (0.0-0.2); EOSINOPHILS % (AUTO) 2.9 % (0.9-2.9); HEMATOCRIT 39.7 % (42.0-54.0); LYMPHOCYTES # (AUTO) 2.9 X10^3/uL (1.3-2.9); LYMPHOCYTES % (AUTO) 35.5 % (21.0-51.0); MEAN CORPUSCULAR HEMOGLOBIN 28.4 pg (27.0-34.0); MEAN CORPUSCULAR HGB CONC 35.3 g/dL (33.0-35.0); MEAN CORPUSCULAR VOLUME 80.3 fL (80.0-100.0); MEAN PLATELET VOLUME 6.7 fL (7.4-11.0); MONOCYTES # (AUTO) 0.8 x10^3/uL (0.3-0.8); MONOCYTES % (AUTO) 9.7 % (0.0-13.0); NEUTROPHILS # (AUTO) 4.2 x10^3/uL (2.2-4.8); NEUTROPHILS % (AUTO) 51.1 % (42.0-75.0); RED BLOOD COUNT 4.95 X10^6/uL (4.7-6.0); WHITE BLOOD COUNT 8.2 X10^3/uL (3.6-10.0)
[2021-12-25 05:36] LABS: ALANINE AMINOTRANSFERASE 40 Units/L (12-78); ALBUMIN 3.5 g/dL (3.4-5.0); ALKALINE PHOSPHATASE 66 Units/L (46-116); ASPARTATE AMINO TRANSFERASE 15 Units/L (15-37); BLOOD UREA NITROGEN 15 mg/dL (7-18); CALCIUM 8.8 mg/dL (8.5-10.1); CARBON DIOXIDE 26.4 mmol/L (21-32); CHLORIDE 105 mmol/L (98-107); CREATININE 0.91 mg/dL (0.70-1.30); SODIUM 139 mmol/L (136-145); TOTAL PROTEIN 6.7 g/dL (6.4-8.2); eGFR NON BLACK RACES > 60 (>60)
[2021-12-25] MEDS: PERCOCET TAB 5/325 MG PO PRN ×3 (07:54→20:30)
--- NOTE | 2021-12-25 09:58 | PCM.PROG ---
Progress Note Progress Note for Day of Date of Exam: 12/25/21 Subjective Subjective: Pt is a 36 year old male admitted for perianal abscess. He is s/p I&D. Consulted for hypertension. Pt was started back on home medication, lisinopril 5mg. BP ranges have been appropriate. No acute events overnight. Labs/imaging: Wbc 8.2, Hgb 14, Plt 291, Na 139, K 4.1, Creatinine 0.91, Glucose 97, Wound cx: prelim coagulase negative staph. Pt is currently receiving IV antibiotics: Vancomycin, Pain control with Dilaudid prn, Oxycodone prn. No further medical management for hypertension. Signing off. Past Medical Family Social History Past Med/Fam/Surg Hx: No changes since H&P Allergies: Allergies haloperidol [From Haldol] Allergy (Verified 12/23/21 14:39) Review of Systems ROS: No change since H&P Vital Signs and I&O's Vital Signs: Temperature 97.6 F Pulse Rate [Left Radial] 57 Pulse Rate 57 Respiratory Rate 18 Blood Pressure [Right Arm] 140/80 Blood Pressure 138/73 O2 Sat by Pulse Oximetry 98 Intake and Output: Intake & Output 12/22/21 12/23/21 12/24/21 12/25/21 23:59 23:59 23:59 23:59 Intake Total 3164 / 3164 1743 / 1743 635 / 635 Output Total 1000 / 1000 Balance 2164 / 2164 1743 / 1743 635 / 635 Physical Exam Oriented: Normal Eyes: Normal Ear: Normal Nose: Normal Respiratory: Normal Cardiovascular: Normal : Other (perianal pain) Auscultation: Bowel Sounds: Normal Tenderness: Normal Skin: Normal Psychiatric: Normal Mood Description: Calm Speech Pattern: Clear and Appropriate Laboratory and Diagnostics Result Diagrams: 12/25/21 04:41 12/25/21 04:41 Labs: 12/23/21 13:30 Anus Wound Gram Stain - Final 12/23/21 13:30 Anus Wound Culture - Preliminary Laboratory WBC 8.2 X10^3/uL (3.6-10.0) 12/25/21 04:41 RBC 4.95 X10^6/uL (4.7-6.0) 12/25/21 04:41 Hgb 14.0 g/dL (13.5-18.0) 12/25/21 04:41 Hct 39.7 % (42.0-54.0) L 12/25/21 04:41 MCV 80.3 fL (80.0-100.0) 12/25/21 04:41 MCH 28.4 pg (27.0-34.0) 12/25/21 04:41 MCHC 35.3 g/dL (33.0-35.0) H 12/25/21 04:41 RDW 13.0 % (11.6-16.5) 12/25/21 04:41 Plt Count 291 X10^3/uL (150.0-450.0) 12/25/21 04:41 MPV 6.7 fL (7.4-11.0) L 12/25/21 04:41 Neut % (Auto) 51.1 % (42.0-75.0) 12/25/21 04:41 Lymph % (Auto) 35.5 % (21.0-51.0) 12/25/21 04:41 [place] % (Auto) 9.7 % (0.0-13.0) 12/25/21 04:41 Eos % (Auto) 2.9 % (0.9-2.9) 12/25/21 04:41 Baso % (Auto) 0.8 % (0.2-1.0) 12/25/21 04:41 Neut # (Auto) 4.2 x10^3/uL (2.2-4.8) 12/25/21 04:41 Lymph # (Auto) 2.9 X10^3/uL (1.3-2.9) 12/25/21 04:41 [place] # (Auto) 0.8 x10^3/uL (0.3-0.8) 12/25/21 04:41 Eos # (Auto) 0.2 x10^3/uL (0.0-0.2) 12/25/21 04:41 Baso # (Auto) 0.1 X10^3/uL (0.0-0.1) 12/25/21 04:41 Absolute Nucleated RBC 0.1 /100WBC 12/25/21 04:41 Sodium 139 mmol/L (136-145) 12/25/21 04:41 Corrected Sodium TNP 12/25/21 04:41 Potassium 4.1 mmol/L (3.5-5.1) 12/25/21 04:41 Chloride 105 mmol/L (98-107) 12/25/21 04:41 Carbon Dioxide 26.4 mmol/L (21-32) 12/25/21 04:41 BUN 15 mg/dL (7-18) 12/25/21 04:41 Creatinine 0.91 mg/dL (0.70-1.30) 12/25/21 04:41 Est GFR (MDRD) Af Amer > 60 (>60) 12/25/21 04:41 Est GFR (MDRD) Non-Af > 60 (>60) 12/25/21 04:41 Glucose 97 mg/dL (65-99) 12/25/21 04:41 Calcium 8.8 mg/dL (8.5-10.1) 12/25/21 04:41 Corrected Calcium TNP 12/25/21 04:41 Total Bilirubin 0.40 mg/dL (0.2-1.0) 12/25/21 04:41 AST 15 Units/L (15-37) 12/25/21 04:41 ALT 40 Units/L (12-78) 12/25/21 04:41 Alkaline Phosphatase 66 Units/L (46-116) 12/25/21 04:41 Total Protein 6.7 g/dL (6.4-8.2) 12/25/21 04:41 Albumin 3.5 g/dL (3.4-5.0) 12/25/21 04:41 Globulin 3.2 g/dL (2.5-4.5) 12/25/21 04:41 Albumin/Globulin Ratio 1.1 Ratio (1.1-2.1) 12/25/21 04:41 Vancomycin Trough 4.0 ug/mL (15-20) L 12/24/21 19:58 Plan (1) Hypertension: Status: Acute (2) Chasidy-rectal abscess: Status: Acute
--- NOTE | 2021-12-25 11:15 | DR.PROGNOT ---
Hospital Progress Notes - Progress Note for Day of: Progress Note Date: 12/25/21 - Chief Complaint Chief Complaint: still having severe rectal pain from the abscess and cellulitis . initial culture showed Staph coag -. s/p I&D and packing . HTN . recurrent perianal abscess.. same IV ABT and local care .. - Past Medical Family Social History Past Med/Fam/Surg Hx: No changes since H&P Allergies: Allergies haloperidol [From Haldol] Allergy (Verified 12/23/21 14:39) - Review Of Systems ROS: No change since H&P - Vital Signs Vital Signs: Temperature 97.6 F Pulse Rate [Left Radial] 57 Pulse Rate 57 Respiratory Rate 20 Blood Pressure [Right Arm] 140/80 Blood Pressure 138/73 O2 Sat by Pulse Oximetry 98 - Physical Exam Oriented: Normal Eyes: Normal Ear: Normal Nose: Normal Respiratory: Normal Cardiovascular: Normal : Other (perianal pain) GI:Auscultation: Normal GI:Palpation: Normal GI: Tenderness: Normal Skin: Normal Psychiatric: Normal Mood Description: Calm Speech Pattern: Clear, Appropriate - Laboratory and Diagnostics Result Diagrams: 12/25/21 04:41 12/25/21 04:41 Labs: 12/23/21 13:30 Anus Wound Gram Stain - Final 12/23/21 13:30 Anus Wound Culture - Preliminary Laboratory WBC 8.2 X10^3/uL (3.6-10.0) 12/25/21 04:41 RBC 4.95 X10^6/uL (4.7-6.0) 12/25/21 04:41 Hgb 14.0 g/dL (13.5-18.0) 12/25/21 04:41 Hct 39.7 % (42.0-54.0) L 12/25/21 04:41 MCV 80.3 fL (80.0-100.0) 12/25/21 04:41 MCH 28.4 pg (27.0-34.0) 12/25/21 04:41 MCHC 35.3 g/dL (33.0-35.0) H 12/25/21 04:41 RDW 13.0 % (11.6-16.5) 12/25/21 04:41 Plt Count 291 X10^3/uL (150.0-450.0) 12/25/21 04:41 MPV 6.7 fL (7.4-11.0) L 12/25/21 04:41 Neut % (Auto) 51.1 % (42.0-75.0) 12/25/21 04:41 Lymph % (Auto) 35.5 % (21.0-51.0) 12/25/21 04:41 Carbon % (Auto) 9.7 % (0.0-13.0) 12/25/21 04:41 Eos % (Auto) 2.9 % (0.9-2.9) 12/25/21 04:41 Baso % (Auto) 0.8 % (0.2-1.0) 12/25/21 04:41 Neut # (Auto) 4.2 x10^3/uL (2.2-4.8) 12/25/21 04:41 Lymph # (Auto) 2.9 X10^3/uL (1.3-2.9) 12/25/21 04:41 Carbon # (Auto) 0.8 x10^3/uL (0.3-0.8) 12/25/21 04:41 Eos # (Auto) 0.2 x10^3/uL (0.0-0.2) 12/25/21 04:41 Baso # (Auto) 0.1 X10^3/uL (0.0-0.1) 12/25/21 04:41 Absolute Nucleated RBC 0.1 /100WBC 12/25/21 04:41 Sodium 139 mmol/L (136-145) 12/25/21 04:41 Corrected Sodium TNP 12/25/21 04:41 Potassium 4.1 mmol/L (3.5-5.1) 12/25/21 04:41 Chloride 105 mmol/L (98-107) 12/25/21 04:41 Carbon Dioxide 26.4 mmol/L (21-32) 12/25/21 04:41 BUN 15 mg/dL (7-18) 12/25/21 04:41 Creatinine 0.91 mg/dL (0.70-1.30) 12/25/21 04:41 Est GFR (MDRD) Af Amer > 60 (>60) 12/25/21 04:41 Est GFR (MDRD) Non-Af > 60 (>60) 12/25/21 04:41 Glucose 97 mg/dL (65-99) 12/25/21 04:41 Calcium 8.8 mg/dL (8.5-10.1) 12/25/21 04:41 Corrected Calcium TNP 12/25/21 04:41 Total Bilirubin 0.40 mg/dL (0.2-1.0) 12/25/21 04:41 AST 15 Units/L (15-37) 12/25/21 04:41 ALT 40 Units/L (12-78) 12/25/21 04:41 Alkaline Phosphatase 66 Units/L (46-116) 12/25/21 04:41 Total Protein 6.7 g/dL (6.4-8.2) 12/25/21 04:41 Albumin 3.5 g/dL (3.4-5.0) 12/25/21 04:41 Globulin 3.2 g/dL (2.5-4.5) 12/25/21 04:41 Albumin/Globulin Ratio 1.1 Ratio (1.1-2.1) 12/25/21 04:41 Vancomycin Trough 4.0 ug/mL (15-20) L 12/24/21 19:58 - Assessment and Plan 1: recurrent peroanal abscess with cellulitis . on IV ABT . local care and packing . possible dicharge in AM ..
[2021-12-25] MEDS: ZESTRIL TAB 5 MG PO SCH (20:25)
[2021-12-25] MEDS ORDERED: PHARMACY COMMENT IV ONE (21:30)
[2021-12-25 23:08] LABS: CREATININE 0.96 mg/dL (0.70-1.30); VANCOMYCIN,TROUGH 7.6 ug/mL (15-20)
[2021-12-25] MEDS: VANCOMYCIN IV *PREMIX 1.25 G/250 ML BAG 1.25 G/250 ML PIGGYBACK IV SCH (23:28)
[2021-12-26] MEDS: DILAUDID INJ IVP PRN ×2 (02:30→06:21)
[2021-12-26] MEDS: BETADINE SOLN TOP SCH (05:20)
[2021-12-26] MEDS: VANCOMYCIN IV *PREMIX 1.25 G/250 ML BAG 1.25 G/250 ML PIGGYBACK IV SCH (08:04)
[2021-12-26] MEDS: PERCOCET TAB 5/325 MG PO PRN (08:46)
[2021-12-26 12:14] VITALS: BP 134/80
== END 2021-12-26 12:50 | disposition home or self-care (01) ==
LOC: SURG1 11:12 → MED/SURG 11:12
PROVIDERS: ADMIT Surgery; ATTEND Surgery